=== PATIENT | male | born 1985 | race Hispanic/Latino ===

== ENCOUNTER 2017-04-04 16:13 | Emergency (ER) | payer OTHER, MEDICARE ==
[~2017-04-04 16:13] MED LIST: BENADRYL 50 MG50 MG PO; DILANTIN ER 10100 MG PO; FIORICET 325 MG1 TAB PO; FLEXERIL10 MG PO; KEPPRA 500MG T500 MG PO; KEPPRA500 M1 PO; KEPPRA500 MG PO; MARI INH; MOTRIN 600 MG600 MG PO; MOTRIN800 MG PO; OXYCODONE5 M1 PO; PERCOCET 5-3251 EACH PO; TRAMADOL50 MG PO
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
[2017-04-04 17:21] LABS: ABSOLUTE BASOPHIL COUNT 0.1 /CUMM (0.0-0.2); ABSOLUTE EOSINOPHIL COUNT 0.2 /CUMM (0.0-0.7); ABSOLUTE GRANULOCYTE CT 5.1 /CUMM (1.4-6.5); ABSOLUTE LYMPH COUNT 3.1 /CUMM (1.2-3.4); ABSOLUTE MONOCYTE COUNT 0.6 /CUMM (0.10-0.60); BASOPHIL % 0.6 % (0.0-2.0); EOSINOPHIL % 2.1 % (0-5); GRANULOCYTE % 56.6 % (42.2-75.2); HEMATOCRIT 44.7 % (42-52); MEAN CORPUSCULAR HGB CONC 32.6 G/DL (33.0-37.0); MEAN CORPUSCULAR VOLUME 91.9 FL (80.0-94.0); MEAN PLATELET VOLUME 7.8 FL (7.4-10.4); PLATELET COUNT 274 /CUMM (130-400); RBC DISTRIBUTION WIDTH 12.6 % (11.5-14.5); RED BLOOD CELL CT 4.86 /CUMM (4.70-6.10); WHITE BLOOD CELL COUNT 9.1 /CUMM (4.8-10.8)
[2017-04-04 17:45] VITALS: BP 104/78
[2017-04-04] MEDS ORDERED: MARI INH (17:59)
--- NOTE | 2017-04-04 17:59 | RADIOLOGY REPORT ---
EXAMINATION: XR PORTABLE CHEST CLINICAL INFORMATION: Seizure, question aspiration COMPARISON: 01/26/2017 TECHNIQUE: Portable frontal view of the chest was obtained. FINDINGS: No significant abnormality is noted involving the heart, lungs, mediastinum, bony thorax or soft tissues. IMPRESSION: No evidence of aspiration.
[2017-04-04] MEDS ORDERED: KEPPRA500 M1 PO (18:58)
== END 2017-04-04 19:04 ==
LOC: ERH 16:13
PROVIDERS: Physician Assistant
DX: G40.909 Epilepsy, unspecified, not intractable, without status epilepticus (principal); Z91.14 Patient's other noncompliance with medication regimen
CPT/HCPCS: 71045; 80307; 93005; 93010; 96374; 96375; G0480; J1953